=== PATIENT | female | born 1940 | race Caucasian/White ===

== ENCOUNTER 2020-05-03 17:15 | Inpatient (IN) | payer MEDICARE ==
[~2020-05-03] VITALS: Ht 160 cm; Wt 55.5 kg
[2020-05-03 19:43] LABS: IMMATURE GRANULOCYTES 1.4 % (0.0-5.0); MEAN CELL VOLUME 98.2 fL CALC (80.0-100.0); MEAN CORPUSCULAR HGB 29.5 pG CALC (26.0-32.0); MEAN CORPUSCULAR HGB CONC 30.1 g/dL CAL (32.0-36.0); NEUT# 21.76 thou/uL (2.00-7.15); RED BLOOD COUNT 1.66 mill/uL (4.20-5.60); RED CELL DISTRI WIDTH 17.4 % (11.5-15.5)
[2020-05-03 19:47] LABS: HEMATOCRIT 16.3 % (37.0-47.0); HEMOGLOBIN 4.9 g/dl (12.0-16.0)
[2020-05-03 19:54] LABS: ALBUMIN 3.7 g/dL (3.2-5.0); ALKALINE PHOSPHATASE 88 u/l (38-126); ANION GAP 14 (6-22 (CALC)); BILIRUBIN, TOTAL 0.3 mg/dL (0.0-1.4); BUN 51 mg/dL (8-23); BUN/CREATININE RATIO 78 (12-20 (CALC)); CARBON DIOXIDE 27 mmol/l (22-30); CHLORIDE 103 mmol/l (95-108); CREATININE 0.6 mg/dL (0.5-1.0); ETHYL ALCOHOL 0 mg/dl (0-30); GFR > 60 ML/MIN (>=60 (CALC)); GFR FOR AFR.AMER. > 60 ML/MIN (>=60 (CALC)); LIPASE 100 u/l (23-300); POTASSIUM 4.4 mmol/l (3.5-5.1); SGOT/AST 22 u/l (9-36); SODIUM 139 mmol/l (137-146); TOTAL PROTEIN 6.9 g/dL (6.3-8.2)
[2020-05-03 19:56] LABS: INTERNATIONAL NORMALIZED RATIO 0.9 RATIO (0.7-1.3); PROTHROMBIN TIME 9.4 SECONDS (9.0-12.5)
[2020-05-03 20:05] LABS: MYOGLOBIN 87 ng/mL (0 - 62)
[2020-05-03 22:00] VITALS: BP 126/59
[2020-05-03 23:15] VITALS: BP 147/48
[2020-05-04] VITALS (11 sets, daily range): BP systolic 105–148; BP diastolic 49–71
[2020-05-04 06:28] LABS: IMMATURE GRANULOCYTES 1.4 % (0.0-5.0); MEAN CORPUSCULAR HGB CONC 32.2 g/dL CAL (32.0-36.0); NEUT# 16.28 thou/uL (2.00-7.15); RED BLOOD COUNT 3.28 mill/uL (4.20-5.60)
[2020-05-04 06:31] LABS: HEMATOCRIT 29.5 % (37.0-47.0); HEMOGLOBIN 9.5 g/dl (12.0-16.0); MEAN CELL VOLUME 89.9 fL CALC (80.0-100.0)
[2020-05-04 06:44] LABS: ANION GAP 10 (6-22 (CALC)); BUN 38 mg/dL (8-23); BUN/CREATININE RATIO 68 (12-20 (CALC)); CARBON DIOXIDE 24 mmol/l (22-30); CHLORIDE 106 mmol/l (95-108); CREATININE 0.6 mg/dL (0.5-1.0); GFR > 60 ML/MIN (>=60 (CALC)); GFR FOR AFR.AMER. > 60 ML/MIN (>=60 (CALC)); POTASSIUM 4.2 mmol/l (3.5-5.1); SODIUM 137 mmol/l (137-146)
[2020-05-04 21:24] LABS: HEMATOCRIT 27.2 % (37.0-47.0); HEMOGLOBIN 8.9 g/dl (12.0-16.0)
[2020-05-05] VITALS (13 sets, daily range): BP systolic 101–143; BP diastolic 40–75
[2020-05-05 05:52] LABS: HEMATOCRIT 27.2 % (37.0-47.0); HEMOGLOBIN 8.6 g/dl (12.0-16.0); IMMATURE GRANULOCYTES 1.1 % (0.0-5.0); MEAN CELL VOLUME 89.8 fL CALC (80.0-100.0); MEAN CORPUSCULAR HGB 28.4 pG CALC (26.0-32.0); MEAN CORPUSCULAR HGB CONC 31.6 g/dL CAL (32.0-36.0); NEUT# 10.53 thou/uL (2.00-7.15); RED BLOOD COUNT 3.03 mill/uL (4.20-5.60); RED CELL DISTRI WIDTH 16.9 % (11.5-15.5)
[2020-05-05 06:10] LABS: ALKALINE PHOSPHATASE 72 u/l (38-126); ANION GAP 9 (6-22 (CALC)); BUN 19 mg/dL (8-23); BUN/CREATININE RATIO 36 (12-20 (CALC)); CARBON DIOXIDE 26 mmol/l (22-30); CHLORIDE 106 mmol/l (95-108); CREATININE 0.5 mg/dL (0.5-1.0); GFR > 60 ML/MIN (>=60 (CALC)); GFR FOR AFR.AMER. > 60 ML/MIN (>=60 (CALC)); SGOT/AST 23 u/l (9-36); SODIUM 137 mmol/l (137-146)
[2020-05-05 06:11] LABS: ALBUMIN 2.7 g/dL (3.2-5.0); BILIRUBIN, TOTAL 0.8 mg/dL (0.0-1.4); TOTAL PROTEIN 5.2 g/dL (6.3-8.2)
[2020-05-05 18:47] LABS: HEMATOCRIT 27.1 % (37.0-47.0); HEMOGLOBIN 8.6 g/dl (12.0-16.0)
[2020-05-06] VITALS: BP 129/65
[2020-05-06 04:00] VITALS: BP 123/58
[2020-05-06 05:18] LABS: HEMATOCRIT 26.9 % (37.0-47.0); HEMOGLOBIN 8.5 g/dl (12.0-16.0); IMMATURE GRANULOCYTES 1.1 % (0.0-5.0); MEAN CELL VOLUME 91.8 fL CALC (80.0-100.0); MEAN CORPUSCULAR HGB CONC 31.6 g/dL CAL (32.0-36.0); NEUT# 9.12 thou/uL (2.00-7.15); RED BLOOD COUNT 2.93 mill/uL (4.20-5.60); RED CELL DISTRI WIDTH 16.7 % (11.5-15.5)
[2020-05-06 05:35] LABS: ALBUMIN 2.7 g/dL (3.2-5.0); ALKALINE PHOSPHATASE 76 u/l (38-126); ANION GAP 9 (6-22 (CALC)); BILIRUBIN, TOTAL 0.7 mg/dL (0.0-1.4); BUN 11 mg/dL (8-23); BUN/CREATININE RATIO 22 (12-20 (CALC)); CARBON DIOXIDE 27 mmol/l (22-30); CHLORIDE 102 mmol/l (95-108); CREATININE 0.5 mg/dL (0.5-1.0); GFR > 60 ML/MIN (>=60 (CALC)); GFR FOR AFR.AMER. > 60 ML/MIN (>=60 (CALC)); SGOT/AST 21 u/l (9-36); SODIUM 135 mmol/l (137-146); TOTAL PROTEIN 5.3 g/dL (6.3-8.2)
[2020-05-06 07:10] VITALS: BP 128/68
[2020-05-06] MEDS ORDERED: OMEPRAZOLE20 MG PO (12:46)
== END 2020-05-06 15:12 | DRG 378 ==
LOC: ED 17:15 → ED-I 20:12 → ED 20:21 → MS2 20:22
PROVIDERS: Physician Assistant; ADMIT Internal Medicine; ATTEND Internal Medicine
PROC: 30233N1 Transfusion of Nonautologous Red Blood Cells into Peripheral Vein, Percutaneous Approach (ICD-10-PCS; 2020-05-03)
PROC: 30233N1 Transfusion of Nonautologous Red Blood Cells into Peripheral Vein, Percutaneous Approach (ICD-10-PCS; 2020-05-04)
PROC: 30233N1 Transfusion of Nonautologous Red Blood Cells into Peripheral Vein, Percutaneous Approach (ICD-10-PCS; 2020-05-04)
PROC: 0DB98ZX Excision of Duodenum, Via Natural or Artificial Opening Endoscopic, Diagnostic (ICD-10-PCS; principal; 2020-05-05)
DX: K92.2 Gastrointestinal hemorrhage, unspecified (principal); D62 Acute posthemorrhagic anemia; T39.315A Adverse effect of propionic acid derivatives, initial encounter; I25.10 Atherosclerotic heart disease of native coronary artery without angina pectoris; I10 Essential (primary) hypertension; E11.9 Type 2 diabetes mellitus without complications; F42.4 Excoriation (skin-picking) disorder; R53.1 Weakness; R52 Pain, unspecified; Z20.822 Contact with and (suspected) exposure to COVID-19; Z88.5 Allergy status to narcotic agent
CPT/HCPCS: P9016; S0164

== ENCOUNTER 2020-05-25 10:16 | Inpatient (IN) | payer MEDICARE, OTHER ==
[~2020-05-25] VITALS: Ht 160 cm; Wt 52.0 kg
[~2020-05-25 10:16] MED LIST: OMEPRAZOLE20 MG PO
--- NOTE | 2020-05-25 11:10 | NUR ---
PT ARRIVES VIA EMS FROM HOME WHERE HOME HEALTH NURSES FOUND HER SOILED WITH MELENOUS STOOL. SON ARRIVES TO BEDSIDE SOON THEREAFTER.
[2020-05-25 11:22] LABS: HEMATOCRIT 29.3 % (37.0-47.0); HEMOGLOBIN 8.6 g/dl (12.0-16.0); IMMATURE GRANULOCYTES 1.2 % (0.0-5.0); MEAN CELL VOLUME 96.1 fL CALC (80.0-100.0); MEAN CORPUSCULAR HGB 28.2 pG CALC (26.0-32.0); MEAN CORPUSCULAR HGB CONC 29.4 g/dL CAL (32.0-36.0); NEUT# 15.96 thou/uL (2.00-7.15); RED BLOOD COUNT 3.05 mill/uL (4.20-5.60); RED CELL DISTRI WIDTH 16.5 % (11.5-15.5)
[2020-05-25 11:33] LABS: ALKALINE PHOSPHATASE 92 u/l (38-126); CHLORIDE 99 mmol/l (95-108); CREATININE 1.4 mg/dL (0.5-1.0); GFR 36 ML/MIN (>=60 (CALC)); GFR FOR AFR.AMER. 44 ML/MIN (>=60 (CALC)); LIPASE 87 u/l (23-300); SGOT/AST 26 u/l (9-36); SODIUM 131 mmol/l (137-146)
[2020-05-25 11:42] LABS: ALBUMIN 3.9 g/dL (3.2-5.0); ANION GAP 23 (6-22 (CALC)); BILIRUBIN, TOTAL 0.3 mg/dL (0.0-1.4); BUN 75 mg/dL (8-23); BUN/CREATININE RATIO 54 (12-20 (CALC)); CARBON DIOXIDE 12 mmol/l (22-30); POTASSIUM 2.9 mmol/l (3.5-5.1)
--- NOTE | 2020-05-25 14:50 | NUR ---
SON HAS GONE HOME PT WILL BE ADMITTED. PT IS POOR HISTORIAN, UNRELIABLE IN WHAT SHE SAYS. NO DISTRESS SHE RESTS IN THE STRETCHER.
[2020-05-25 15:01] LABS: HEMATOCRIT 23.7 % (37.0-47.0); HEMOGLOBIN 7.5 g/dl (12.0-16.0)
--- NOTE | 2020-05-25 16:25 | NUR ---
PT ARRIVED TO UNIT AT 1625 VIA STRETCHER WITH ER STAFF; PULLED FROM STRETCHER TO BED WITH ONE PERSON ASSIST; MAX ASSIST. PT IS ALERT AND ORIENTED X 3 WITH FLAT AFFECT; ABLE TO ANSWER ALL ASSESSMENT QUESTIONS APPROPRIATELY, BUT APPEARS TO HAVE SOME FORGETFULNESS OR MILD CONFUSION AT TIMES. HARD OF HEARING. C/O 8/10 RIGHT SIDE PAIN THAT SHE HAS HAD X 1 MONTH; TAKES ES TYLENOL AT HOME AND DENIES TAKING ANY OTHER MEDICATIONS; EMPTY BOTTLE OF OMEPRAZOLE FOUND IN BELONGINGS. RESPIRATIONS EVEN AND UNLABORED ON ROOM AIR; SPO2 98%; DENIES SOB OR COUGH. LUNGS ARE DIMINISHED IN THE BASES. INCONTINENT OF BOWEL AND BLADDER; EXCORIATION TO BUTTOCK; PHOTO OBTAINED AND PLACED IN CHART AND BARRIER CREAM APPLIED. IV FLUIDS INFUSING UP ON ARRIVAL; IV SITE TO LAC APPEARS HEALTHY. ORIENTED TO ROOM AND CALL LIGHT SYSTEM. POC DISCUSSED. PT ENCOURAGED TO VERBALIZE CONCERNS. STATES UNDERSTANDING. SAFETY MEASURES IN PLACE. CALL LIGHT WITHIN REACH.
--- NOTE | 2020-05-25 16:34 | NUR ---
PT TAKEN TO ROOM 267, REPORT PROVIDED TO ALESSANDRA DOUGLAS.
[2020-05-25 16:48] VITALS: BP 126/36
--- NOTE | 2020-05-25 17:28 | NUR ---
PROTONIX GTT INITIATED AT THIS TIME. PT RESTING; NO NEEDS AT THIS TIME.
--- NOTE | 2020-05-25 18:50 | NUR ---
PT REQUESTING PAIN MEDICATION FOR RIGHT SIDED PAIN; NEW ORDERS RECEIVED.
--- NOTE | 2020-05-25 19:57 | NUR ---
ASSESSMENT COMPLETED AT THIS TIME. PT ASKING FOR TYLENOL, WILL OBTAIN ORDERS.
[2020-05-25 20:00] VITALS: BP 119/54
[2020-05-25 21:43] LABS: MEAN CORPUSCULAR HGB CONC 32.2 g/dL CAL (32.0-36.0); RED BLOOD COUNT 2.21 mill/uL (4.20-5.60); RED CELL DISTRI WIDTH 16.7 % (11.5-15.5)
[2020-05-25 21:45] LABS: HEMOGLOBIN 6.4 g/dl (12.0-16.0)
[2020-05-25 21:46] LABS: HEMATOCRIT 19.9 % (37.0-47.0)
--- NOTE | 2020-05-25 21:54 | NUR ---
LAB CALLED TO NOTIFY OF CRITICAL LABS, PHYSICIAN NOTIFIED AND ORDERS TO TRANSFUSE 2UN PRBC RECEIVED ALONG WITH LASIX TO BE ADMINISTERED BETWEEN UNITS AND CBC REPEAT IN AM. ORDERS PLACED,WILL OBTAIN CONSENT FROM PT. LAB CALLED TO ALERT TO ORDER FOR BLOOD.
[2020-05-25 21:57] LABS: ANION GAP 9 (6-22 (CALC)); CHLORIDE 105 mmol/l (95-108); CREATININE 0.9 mg/dL (0.5-1.0); GFR 60 ML/MIN (>=60 (CALC)); GFR FOR AFR.AMER. > 60 ML/MIN (>=60 (CALC)); SODIUM 130 mmol/l (137-146)
[2020-05-25 21:58] LABS: BUN 53 mg/dL (8-23); BUN/CREATININE RATIO 59 (12-20 (CALC))
[2020-05-25 22:01] LABS: CARBON DIOXIDE 19 mmol/l (22-30)
--- NOTE | 2020-05-25 23:00 | NUR ---
CALLED PHARMACY TO VERIFY RECEIPT OF NS ORDER OF 500MLS FOR ADMINISTRATION OF PRBC, CONFIRMED RECEIPT AND STATED THEY WOULD PROCESS ORDER. PER ROSALIND
--- NOTE | 2020-05-25 23:31 | NUR ---
IV ANTIBIOTIC THERAPY IS BEINGADMINISTERED AT THIS TIME THROUGH A NEW IV SITE/20 IN RFA. REFAXED ORDER FOR 500MLS OF NS TO PHARMACY FOR PROCESSING OF ORDERS FOR PRBC TRANSFUSION, HAVE NOT BEEN ABLE TO OBTAIN THIS ORDER BEING PROCESSED. HAVE CALLED TO CONFIRM RECEIPT AND SPOKEN TO CARDINAL ROSALIND.
--- NOTE | 2020-05-25 23:40 | NUR ---
IV ANTIBIOTIC THERAPY IS RUNNING AT THIS TIME.
[2020-05-26] VITALS (27 sets, daily range): BP systolic 84–173; BP diastolic 46–99
--- NOTE | 2020-05-26 00:28 | NUR ---
1ST UNIT OF PRBC STARTED AT THIS TIME RUNNING TO NEW IV SITE IN [facility]. I DISCUSSED SYMPTOMS OF REACTION WITH PT. SHE ASKED IF I WILL STAY WITH HER, I TOLD HER I WOULD STAY FOR THE FIRST 15 MIN AND CHECK HER OFTEN, SHE THANKED ME FOR STAYING. PT V/S ARE STABLE AT THIS TIME. WILL MONITOR FOR BLOOD PRODUCTE REACTION.
--- NOTE | 2020-05-26 00:57 | NUR ---
PT DENIES ANY ITCHING, SOB OR DISTRESSES AT THIS TIME.
--- NOTE | 2020-05-26 02:53 | NUR ---
FIRST UNIT OF PRBC COMPLETED AT THIS TIME AND NEW TUBING STARTED WITH NS @70. V/S ARE STABLE AT THIS TIME. BP 93/52.
--- NOTE | 2020-05-26 03:15 | NUR ---
2ND UNIT OF PRBC STARTED AT THIS TIME. PT REMINDED OF WHAT SIDE EFFECTS TO WATCH FOR, VERBALIZED UNDERSTANDING AND REPEATED WHAT SHE WAS GOING TO TELL ME ABOUT IF SHE EXPERIENCED ANY OF THOSE SYMPTOMS. I AM SITTING WITH PT FOR FIRST 15 MIN OF TRANSFUSION. PT IS AWAKE WATCHING TV. DENIES FEELING SLEEPY.
--- NOTE | 2020-05-26 03:32 | NUR ---
PT V/S ASSESSED, SHE IS AWAKE WATCHING TV. DENIES ANY NEG SYMPTOMS, DENIES SOB, ITCHING OR ANY OTHER DISTRESSES.
--- NOTE | 2020-05-26 04:27 | NUR ---
V/S ASSESSED, PT DENIES ANY S/O REACTION TO PRBC'S RUNNING TO RFA/SITE APPEARS HEALTHY. NO S/O DISTRESS. PT AWAKE AND WATCHING TV.
--- NOTE | 2020-05-26 05:52 | NUR ---
PT BP ELEVATED 132/46 AND SHE IS SOUNDING MILD WHEEZES IN LUNGS, MEDICATED AT THIS TIME W/LASIX ORDERS PRVOIDE.
[2020-05-26 06:20] LABS: IMMATURE GRANULOCYTES 0.5 % (0.0-5.0); MEAN CELL VOLUME 89.2 fL CALC (80.0-100.0); MEAN CORPUSCULAR HGB 28.3 pG CALC (26.0-32.0); MEAN CORPUSCULAR HGB CONC 31.7 g/dL CAL (32.0-36.0); NEUT# 8.59 thou/uL (2.00-7.15); RED BLOOD COUNT 3.25 mill/uL (4.20-5.60); RED CELL DISTRI WIDTH 15.6 % (11.5-15.5)
[2020-05-26 06:23] LABS: HEMOGLOBIN 9.2 g/dl (12.0-16.0)
--- NOTE | 2020-05-26 07:00 | NUR ---
PT REPORT RECEIVED FROM NIGHT NURSE, Eldon RIVERA
--- NOTE | 2020-05-26 10:00 | NUR ---
PT WAS FOUND RESTING COMFORTABLY IN BED; VITAL SIGNS ARE WITHIN NORMAL RANGE WITH THE EXCEPTION OF LOW B/P OF 84/57; HEART SOUNDS REGULAR;LUNG SOUNDS CLEAR, SLIGHTLY DIMINISHED IN UPPER LOBES, SOME WHEEZING IN LOWER LOBES BILATERALLY; PT O2 SAT 98 ON RA;RESPIRATIONS ARE EVEN AND UNLABORED; ABDOMEN IS SOFT AND BOWEL SOUNDS ARE ACTIVE IN ALL QUADRANTS; RADIAL AND PEDAL PULSES PRESENT WITH NO EDEMA NOTED IN LOWER EXTREMETIES;PT IS REPORTING SLIGHT PAIN ON RT SIDE;BUTTOCKS AND JORGE AREA ARE EXCORIATED; INCONTINENT OF URINE/BOWEL;PT HAS 2 IV SITES;#20 RAC AND #20 LFA WITH NS RUNNING @100ML/HR;SITES ARE BOTH PATENT AND FREE OF ANY COMPLICATIONS;PT ASKED TO CALL WITH ANY NEEDS;CALL LIGHT LEFT WITHIN REACH;BED IN LOWEST POSITION;WILL CONTINUE TO MONITOR.
--- NOTE | 2020-05-26 11:30 | NUR ---
PT CALLED AND ASKED TO BE CHANGED DUE TO INCONTINENCE OF URINE;FOUND PT WITH MODERATE SIZE BLOODY STOOL CLOT;PT REPORTED NO PAIN;PT CHANGED AND A PUREWICK WAS PLACED AT THIS TIME;BARRIER CREAM WAS PLACED ON BUTTOCKS TO HELP WITH PAIN AND EXCORIATION;PT WAS INSTRUCTED TO CALL WHEN SHE FELT THE NEED TO URINATE SO THE PUREWICK COULD BE CHECKED TO BE WORKING FOR HER;CALL LIGHT LEFT WITHIN REACH;BED IN LOWEST POSITION;WILL CONTINUE TO MONITOR.
--- NOTE | 2020-05-26 12:15 | NUR ---
PT WAS CHECKED TO MONITOR THE PUREWICK THAT WAS PLACED EARLIER;FOUND PT WITH LARGE AMOUNTS OF BLOODY STOOL;PT WAS CLEANED AND PUREWICK REMOVED;BARRIER CREAM PLACED ON BUTTOCKS;PROVIDER WAS NOTIFIED;PT WAS INSTRUCTED TO CALL IF NEEDING HELP;CALL LIGHT LEFT WITHIN REACH;BED IN LOWEST POSITION;WILL CONTINUE TO MONITOR.
[2020-05-26 13:11] LABS: HEMATOCRIT 24.7 % (37.0-47.0); HEMOGLOBIN 7.9 g/dl (12.0-16.0)
[2020-05-26 13:33] LABS: ALKALINE PHOSPHATASE 74 u/l (38-126); ANION GAP 9 (6-22 (CALC)); BUN 34 mg/dL (8-23); BUN/CREATININE RATIO 43 (12-20 (CALC)); CARBON DIOXIDE 20 mmol/l (22-30); CHLORIDE 107 mmol/l (95-108); CREATININE 0.8 mg/dL (0.5-1.0); GFR > 60 ML/MIN (>=60 (CALC)); GFR FOR AFR.AMER. > 60 ML/MIN (>=60 (CALC)); SGOT/AST 34 u/l (9-36); SODIUM 132 mmol/l (137-146)
--- NOTE | 2020-05-26 13:38 | NUR ---
CALL WAS MADE TO ; INFORMED HIM OF PT'S 2 EPISODES OF BLOODY CLOTS THAT SHE HAD PASSED(ONE MODERATE AND ONE LARGE); TOLD HIM THAT I HAD LET KNOW OF THE BLEEDING AND HE ASKED FOR A STAT H&H AND FOR THE ENDO TO BE DONE LATER TODAY IF HE WOULD AGREE; GAVE THE LAST TWO H&H RESULTS WELL THE RECOMMENDATION BY ;INFORMED THAT PT HAD BEEN NPO; SAID THAT HE WOULD TAKE CARE OF IT TODAY.
[2020-05-26 13:39] LABS: ALBUMIN 2.7 g/dL (3.2-5.0); BILIRUBIN, TOTAL 0.6 mg/dL (0.0-1.4); TOTAL PROTEIN 5.2 g/dL (6.3-8.2)
--- NOTE | 2020-05-26 14:25 | NUR ---
PT WAS BEING PREPARED FOR TRANSPORT TO OR;PT HAD ANOTHER VERY LARGE BLOODY STOOL;CLEANED PT AND CONSENT WAS OBTAINED AND SIGNED BY PT;PRE-OP PAPERWORK CHECKLIST WAS COMPLETED.
--- NOTE | 2020-05-26 14:50 | NUR ---
PT TRANSPORTED VIA STRETCHER TO OR BY Eldon SHAH
--- NOTE | 2020-05-26 19:04 | NUR ---
PT ARRIVED VIA BED ACCOMPANIED BY OR STAFF ON A VENT. PT STABILIZED IN ROOM. RT AT BEDSIDE.
--- NOTE | 2020-05-26 19:22 | NUR ---
report received from Tory Cuenca RN; monitoring attachments connected; pt noted bigeminy; hutchins to gravity;
[2020-05-26 20:21] LABS: HEMATOCRIT 32.4 % (37.0-47.0); HEMOGLOBIN 10.3 g/dl (12.0-16.0)
--- NOTE | 2020-05-26 20:30 | NUR ---
report given to Cristofer Meza RN
--- NOTE | 2020-05-26 21:00 | NUR ---
PT REMAINS ORALLY INTUBATED ON VENTILATOR. AROUSES BRIEFLY TO VOICE. NICHOLS TO BSD WITH CLEAR YELLOW URINE DRAINING. ABD DRESSING DRY AND INTACT WITH [address] WITH BLOODY DRAINAGE NOTED. LEFT NARE SALEM SUMP TO MED INTERMITTENT SUCTION WITH COFFEE GROUND EMESIS NOTED. IV SITES RFA AND LFA PATENT AND INFUSING WELL. LUIS DANIEL HUGGER IN USE.
[2020-05-27] VITALS (25 sets, daily range): BP systolic 115–176; BP diastolic 44–77
--- NOTE | 2020-05-27 01:00 | NUR ---
AROUSES TO VOICE. TOLERATING VENT. NO SIGNIFICANT CHANGE IN EXAM.
--- NOTE | 2020-05-27 02:08 | NUR ---
RESTING COMFORTABLY. IV INFUSING WELL. AROUSES TO VOICE. ORIENTED TO CURRENT CONDITION, SITUATION AND PLANS. NODS UNDERSTANDING. NICHOLS DRAINING WELL. NG DRAINAGE WITH DARK GREEN TINT. REGINALDO DRAINS CONTINUE TO DRAIN BLOODY FLUID.
--- NOTE | 2020-05-27 02:27 | NUR ---
CLEANED OF 150-200 CC BURGANDY COLORED STOOL.
--- NOTE | 2020-05-27 02:58 | NUR ---
ON PROPOFOL DRIP. APPEARS COMFORTABLE.
--- NOTE | 2020-05-27 03:21 | NUR ---
INCREASED PROPOFOL DRIP TO 10 MCG. MEDICATED FOR ABD PAIN.
--- NOTE | 2020-05-27 05:34 | NUR ---
DECREASED FIO2 TO 28% AFTER ABG RESULTS. AWAKE AND RELATIVELY COMFORTABLE.
[2020-05-27 06:05] LABS: URINE BILIRUBIN - DIPSTICK NEGATIVE (NEGATIVE); URINE BLOOD DIPSTICK TRACE-INTACT (NEGATIVE); URINE COLOR YELLOW; URINE GLUCOSE - DIPSTICK NEGATIVE (NEGATIVE); URINE KETONE NEGATIVE (NEGATIVE); URINE LEUK ESTERASE NEGATIVE (NEGATIVE); URINE NITRITE - DIPSTICK NEGATIVE (Negative); URINE PH 5.5 (4.5-8.0); URINE PROTEIN - DIPSTICK TRACE mg/dL (NEG-TRACE); URINE SPECIFIC GRAVITY 1.025; URINE UROBILINOGEN - DIPSTICK 0.2 E.U./dL (0.2)
--- NOTE | 2020-05-27 06:29 | NUR ---
ALERT AWAKE. INTERACTIVE AND APPROPRIATE. ASSISTS IN TURNING. VSS. TOLERATING VENT CHANGE. IV'S INFUSING WELL. SITES GOOD. NICHOLS AND NG ARE DRAINING WELL.
[2020-05-27 06:54] LABS: MEAN CELL VOLUME 86.9 fL CALC (80.0-100.0); MEAN CORPUSCULAR HGB 28.5 pG CALC (26.0-32.0); MEAN CORPUSCULAR HGB CONC 32.7 g/dL CAL (32.0-36.0); NEUT# 14.34 thou/uL (2.00-7.15); RED BLOOD COUNT 2.6 mill/uL (4.20-5.60); RED CELL DISTRI WIDTH 17.6 % (11.5-15.5)
[2020-05-27 06:57] LABS: HEMATOCRIT 22.6 % (37.0-47.0); HEMOGLOBIN 7.4 g/dl (12.0-16.0)
[2020-05-27 07:12] LABS: ANION GAP 7 (6-22 (CALC)); BUN 30 mg/dL (8-23); BUN/CREATININE RATIO 34 (12-20 (CALC)); CARBON DIOXIDE 23 mmol/l (22-30); CHLORIDE 112 mmol/l (95-108); CREATININE 0.9 mg/dL (0.5-1.0); GFR 60 ML/MIN (>=60 (CALC)); GFR FOR AFR.AMER. > 60 ML/MIN (>=60 (CALC)); POTASSIUM 3.2 mmol/l (3.5-5.1); SODIUM 138 mmol/l (137-146)
--- NOTE | 2020-05-27 07:15 | NUR ---
REPORT RECEIVED FROM STELLA VELÁZQUEZ. PT RESTING IN BED SEMI FOWLERS AND POSITIONED ONTO RIGHT SIDE WITH PILLOWS. SEDATED AND INTUBATED; VENT SETTINGS ON ASSIST CONTROL RATE OF 20; TV 450 FIO2 28% PEEP 5. RASS SCORE OF 3; PT IS AWAKE AND FOLLOWING COMMANDS; BILATERAL WRISTS RESTRAINTS INTACT. PROPOFOL INFUSING AT 10 MCG/MIN AND NS KVO. ABDOMINAL DRESSING CDI; 2 REGINALDO DRIANS DRAINING SEROSANGUINOUS FLUID IN MODERATE AMOUNTS. NG TUBE L NARE CONNNECTED TO LIS WITH BLACK/DARK RED COFFEE GROUND CONTENT. NICHOLS DRAINING CLEAR YELLOW URINE. SCDS INTACT TO BLE. SAFETY MEASURES IN PLACE. NEEDS ARE ANTICIPATED BY STAFF.
--- NOTE | 2020-05-27 07:30 | NUR ---
PROPOFOL TITRATED DOWN TO 5 MCG/MIN IN PREPARATION FOR EXTUBATION. OK PER DR. ARORA.
--- NOTE | 2020-05-27 07:55 | NUR ---
PT INDICATING PAIN TO ABDOMEN; DIALUDID ADMINISTERED. PROPOFOL DISCONTINUED.
--- NOTE | 2020-05-27 07:56 | NUR ---
RT AT BEDSIDE FOR EXTUBATION.
--- NOTE | 2020-05-27 08:03 | NUR ---
PT EXTUBATED AND PLACED ON 2L NC @ 0755.
--- NOTE | 2020-05-27 08:05 | NUR ---
RESTRAINTS REMOVED IMMEDIATELY AFTER EXTUBATION.
--- NOTE | 2020-05-27 08:20 | NUR ---
PT USING CALL LIGHT FREQUENTLY REPORTING SEVERE ABDOMINAL PAIN AND REQUESTING MEDICATION; NEW ORDER FOR OFIRMEV; INFUSING AT THIS TIME.
--- NOTE | 2020-05-27 08:26 | NUR ---
DR. ARORA AND ROBIN HYLTON AT BEDSIDE.
--- NOTE | 2020-05-27 09:00 | NUR ---
INCONTINENT OF LARGE LOOSE BLACK STOOL WITH CLOTS. 22ML OF DARK RED, YELLOW TINGED FLUID EMPTIED FROM REGINALDO #1 ON R ABDOMEN; 8ML OF SANGUINOUS DRAINAGE EMPTIED FROM REGINALDO #2 ON L ABDOMEN. OCCASIONAL LOOSE COUGH WITH BLOODY THICK SPUTUM; SUCTION AT BEDSIDE AND PT ABLE TO SUCTION SPUTUM FROM MOUTH. DR. JUSTIN AT BEDSIDE FOR EVAL. PT TO REMAIN NPO.
--- NOTE | 2020-05-27 09:15 | NUR ---
RADIOLOGY AT BEDSIDE FOR PORTABLE CHEST XR.
--- NOTE | 2020-05-27 11:52 | NUR ---
NG TUBE FOUND DISLODGED ON BED; PT STATES THAT SHE REMOVED IT. NEW NG TUBE PLACED RIGHT NARE; PLACEMENT VERIFIED WITH AUSCULTATION OF AIR ADMINISTRATION. IV SITE TO LFA REMOVED DUE TO REDNESS AND POSSIBLE INFILTRATION. #20 TO RFA REMAINS PATENT. ANESTHESIA AT BEDSIDE FOR POST OP EVAL.
--- NOTE | 2020-05-27 12:19 | NUR ---
BLOOD DRAWN BY ICU STAFF AND SENT TO LAB. SOL INFUSING.
[2020-05-27 12:23] LABS: HEMATOCRIT 21.5 % (37.0-47.0); HEMOGLOBIN 7.1 g/dl (12.0-16.0)
--- NOTE | 2020-05-27 13:27 | NUR ---
DR. ARORA NOTIFIED OF HEMOGLOBIN OF 7.1, TRENDING DOWN SINCE LAST NIGHT. NEW ORDER FOR 1 UNIT OF PRBCS. IV SITE TO RFA DISLODGED; SITE DC'D AND NEW #20 STARTED TO RIGHT HAND; NORMAL SALINE AGAIN INFUSING AT 100 ML/HR PER ORDER.
--- NOTE | 2020-05-27 14:19 | NUR ---
BLOOD TRANSFUSION INITATED; IV SITE APPEARS HEALTHY; VSS. PT REMINDED OF S/S TRANSFUSION REACTION. CONTINUES TO C/O SEVERE ABDOMINAL PAIN. PILLOW PROVIDED FOR SPLINGING AND PT ENCOURAGED TO REPOSITION.
--- NOTE | 2020-05-27 16:38 | NUR ---
MULTIPLE ATTEMPTS MADE FOR SECOND IV SITE WITHOUT SUCCESS. BLOOD TRANSFUSION CONTINUES TO SITE IN RIGHT HAND; NO S/S REACTION. PT REMAINS ON 2L VIA NC.
--- NOTE | 2020-05-27 17:23 | NUR ---
BLOOD TRANSFUSION COMPLETED; IV TYLENOL ADMINSITERED IMMEDIATELY FOLLOWING. DIFLUCAN NOW INFUSING IVPB TO NORMAL SALINE. 225ML OF COFFEE GROUND DARK RED CONTENT EMPTIED FROM NG TUBE; CONTINUES ON LOW CONTINUOUS SUCTION PER ORDERS. REGINALDO#1 EMPTIED 30ML OF DARK GREEN/BLACK FLUID; REGINALDO#2 EMPTIED 10ML OF SANGUINOUS FLUID; DR. JUSTIN UPDATED ON CHARACTERISTICS OF OUTPUT.
--- NOTE | 2020-05-27 18:07 | NUR ---
DILAUDID GIVEN NOW; PT MORE RELAXED AND RESTING WITH EYES CLOSED. ZOSYN INFUSING. SAFETY MEASURES IN PLACE. CALL LIGHT WITHIN REACH.
[2020-05-27 20:00] LABS: HEMATOCRIT 24.7 % (37.0-47.0); HEMOGLOBIN 8.3 g/dl (12.0-16.0)
--- NOTE | 2020-05-27 20:10 | NUR ---
PT IN SUPINE POSITION; PT A/O X3; O2 2L VIA NC, O2 SAT 95%; NG TO LT NARE WITH SMALL AMOUNT OF DARK DRAINAGE NOTED; DRSG TO ABD CDI; REGINALDO DRAIN #1 WITH BILE COLOR DRAINAGE; REGINALDO DRAIN #2 WITHE SMALL AMOUNT OF SEROUSAGINOUS DRAINAGE NOTED; NICHOLS DRAINING YELLOW URINE TO BEDSIDE DRAIN; PT WITH MODERATE AMOUNT OF DK PASTY STOOL, JORGE CARE PROVIDED; STOOL SAMPLE OBTAINED; BUTTOCKS SANCHEZ BARRIER CREAM APPLIED; BILAT SCD IN PLACE; PT REPOSITION TO RT SIDE; CALL CALDWELL WITHIN REACH; WILL CONTINUE TO MONITOR.
[2020-05-27 21:06] LABS: C. DIFFICILE TOXIN A&B NEGATIVE (NEGATIVE)
--- NOTE | 2020-05-27 22:41 | NUR ---
PT REPOSITIONS SELF IN BED; PT PULLED NGT OUT; MD NOTIFIED; ORDERS RECEIVED TO LEAVE OUT; CALL CALDWELL WITHIN REACH; WILL CONTINUE TO MONITOR.
[2020-05-28] VITALS (17 sets, daily range): BP systolic 115–141; BP diastolic 40–67
--- NOTE | 2020-05-28 00:45 | NUR ---
PT UP COMPLAIN OF ABD SURGICAL PAIN 12/11, MEDICATED ORDERED; NO OTHER COMPLAINTS VOICED; CALL CALDWELL WITHIN REACH; WILL CONTINUE TO MONITOR.
--- NOTE | 2020-05-28 02:14 | NUR ---
pt resting with eyes closed; no s/sx of distress noted; call lan within reach; will continue to monitor.
--- NOTE | 2020-05-28 04:49 | NUR ---
PT FOUND WITH IV ACCESS OUT, PARTIAL BATH COMPLETED AND GOWN AND LINEN CHANGE WELL. PT INCONTINENT OF MODERATE AMOUNT BLACK LOOSE STOOL, JORGE CARE PROVIDED BREAKDONW NOTED TO SACRAL AREA AND BUTTOCKS, PT ENCOUARGED STRONGLY TO REPOSITION ON SIDE FOR PRESSURE RELIEF AND WILL HAVE PRIMARY CARE DISCUSS SPECIALITY BED WITH MD IN AM. PT TOLERATED WELL, NEW IV ACCESS OBTAINED, MEDICATED FOR PAINA ND REPOSITIONED ON R SIDE.
[2020-05-28 05:33] LABS: HEMATOCRIT 24.3 % (37.0-47.0); IMMATURE GRANULOCYTES 0.8 % (0.0-5.0); MEAN CELL VOLUME 87.4 fL CALC (80.0-100.0); MEAN CORPUSCULAR HGB 28.8 pG CALC (26.0-32.0); MEAN CORPUSCULAR HGB CONC 32.9 g/dL CAL (32.0-36.0); NEUT# 10.02 thou/uL (2.00-7.15); RED BLOOD COUNT 2.78 mill/uL (4.20-5.60); RED CELL DISTRI WIDTH 17.3 % (11.5-15.5)
[2020-05-28 06:03] LABS: ALBUMIN 2.3 g/dL (3.2-5.0); ALKALINE PHOSPHATASE 62 u/l (38-126); BILIRUBIN, TOTAL 0.8 mg/dL (0.0-1.4); BUN 15 mg/dL (8-23); BUN/CREATININE RATIO 22 (12-20 (CALC)); CHLORIDE 107 mmol/l (95-108); CREATININE 0.7 mg/dL (0.5-1.0); GFR > 60 ML/MIN (>=60 (CALC)); GFR FOR AFR.AMER. > 60 ML/MIN (>=60 (CALC)); MAGNESIUM 1.8 mg/dL (1.6-2.3); SGOT/AST 33 u/l (9-36); SODIUM 138 mmol/l (137-146); TOTAL PROTEIN 4.5 g/dL (6.3-8.2)
[2020-05-28 06:06] LABS: ANION GAP 5 (6-22 (CALC)); CARBON DIOXIDE 29 mmol/l (22-30); POTASSIUM 2.5 mmol/l (3.5-5.1)
--- NOTE | 2020-05-28 06:15 | NUR ---
PT MEDICATED ORDERED, PT FOUND WITH COBAN OFF IV ACCESS, REMINDED TO KEEP IV INTACT AND LEAVE SITE ALONE, PT VERBALIZES UNDERSTANDIG BUT MAY REQUIRE REMINDERS.MINIMAL SLEEP ACHIEVED BY PT THIS SHIFT, DOES MAKE FREQUENT REQUESTS TO "NAP" COMFORT MEASURES PROVIDED.
--- NOTE | 2020-05-28 07:05 | NUR ---
RADIOLOGY AT BEDSIDE FOR CHEST XR.
--- NOTE | 2020-05-28 07:13 | NUR ---
DR. GIBBS AT BEDSIDE.
--- NOTE | 2020-05-28 07:20 | NUR ---
REPORT RECEIVED FROM STELLA WOLFE. PT RESTING IN BED SEMI FOWLERS ; ALERT AND ORIENTED WITH FORGETFULNESS. C/O SEVERE ABDOMINAL PAIN. RESPIRATIONS EVEN AND UNLABORED ON 2L OXYGEN VIA NC. ABDOMINAL DRESSING CDI WITH 2 REGINALDO DRAINS. IV FLUIDS INFUSING WITHOUT DIFFICULTY; IV SITE APPEARS HEALTHY. SCDS INTACT TO BLE. SAFETY MEASURES IN PLACE. CALL LIGHT WITHIN REACH.
--- NOTE | 2020-05-28 09:22 | NUR ---
DR. JORGENSEN NOTIFIED OF REMOVAL OF NG TUBE; WILL NOT REINSERT AT THIS TIME.
--- NOTE | 2020-05-28 10:35 | NUR ---
SECOND IV SITE STARTED TO RIGHT HAND; POTASSIUM AND MAGNESIUM INFUSING AT THIS TIME. PT RECEIVED IV OFIRMEV FOR ABDOMINAL PAIN.
--- NOTE | 2020-05-28 12:28 | NUR ---
PT RESTING IN BED WITH EYES CLOSED; AWAKENS SPONTANESOUSLY. SECOND BAG OF POTASSIUM INFUSING AND ZOSYN INFUSED. BOTH IV SITES APPEAR HEALTHY AND FLUSHES.
--- NOTE | 2020-05-28 13:39 | NUR ---
[facility]
--- NOTE | 2020-05-28 14:00 | NUR ---
DR. JUSTIN AT BEDSIDE FOR EVAL.
--- NOTE | 2020-05-28 16:00 | NUR ---
PT USING MOIST TOOTHETTES TO MOISTEN MOUTH AND LIPS. IV FLUIDS CONTINUE TO INFUSE WITHOUT DIFFICULTY AND IV SITES APPEAR HEALTHY. PT C/O CONSTANT ABDOMINAL PAIN, BUT THAT SHE FEELS A LITTLE BIT BETTER AND IT IS NOW A 11/10. SAFETY MEASURES IN PLACE. CALL LIGHT WITHIN REACH.
--- NOTE | 2020-05-28 18:09 | NUR ---
ZOSYN INFUSING. REGINALDO DRAINS BOTH NOW DRAINING SEROSANGUINOUS DRAINAGE. NICHOLS DRAINING CLEAR YELLOW URINE.
--- NOTE | 2020-05-28 20:00 | NUR ---
RESTING IN BED ON ROUNDS. AWAKE, ALERT AND ORIENTED. RESP NON-LABORED. LUNGS CLEAR. O2 ON AT 2 L NC. O2 SAT 100% ABD DSG CDI. REGINALDO #1 TO RT ABD AND REGINALDO #2 TO LT ABD BOTH WITH SEROSANGUINOUS DRAINAGE. NICHOLS DRAINS CLEAR YELLOW URINE. SCD'S IN PLACE BILATERALLY. ADJUSTMENT SUPERVISOR SHOWS SR. DISCUSSED PLAN OF CARE. DENIES NEEDS AT THIS TIME. CALL CALDWELL IN REACH.
--- NOTE | 2020-05-28 22:00 | NUR ---
RESTING WITHOUT COMPLAINTS. VSS. RESP NON-LABORED. SR ON MONITOR.
[2020-05-29] VITALS (14 sets, daily range): BP systolic 116–171; BP diastolic 46–75
--- NOTE | 2020-05-29 00:05 | NUR ---
RESTING IN BED WITH EYES CLOSED. RESP NON-LABORED. VSS. SR ON MONITOR.
--- NOTE | 2020-05-29 02:05 | NUR ---
COMPLETE BED BATH AND LINEN CHANGE. PATIENT INCONTINENT OF LARGE AMOUNT OF LIGHT BROWN LIQUID. BARRIER OINT APPLIED TO BUTTOCKS. AIR MATTRESS IN PLACE. HEEL PROTECTORS APPLIED BILATERALLY. TURNED AND REPOSITIONED. PATIENT C/O OPERATIVE PAIN.
--- NOTE | 2020-05-29 02:15 | NUR ---
MEDICATED WITH DIALUDID 1 MG IVP FOR C/O PAIN.
--- NOTE | 2020-05-29 02:40 | NUR ---
PATIENT STATES PAIN MED HAS HELPED.
--- NOTE | 2020-05-29 04:00 | NUR ---
RESTING WITH EYES CLSOED. IN NO APPARENT DISTRESS. VSS. RESP NON-LABORED. SR ON MONITOR.
--- NOTE | 2020-05-29 05:55 | NUR ---
DILAUDID 1 MG IVP GIVEN FOR C/O OPERATIVE PAIN. TURNED AND REPOSITIONED ONTO RIGHT SIDE. PATIENT ASSISTS WITH TURNING ABLE. VSS. NS CONTINUES TO INFUSE INTO LW IV SITE AT 100 ML/HR. SALINE LOCK IN RH FLUSHED AND PATENT.
[2020-05-29 06:52] LABS: HEMOGLOBIN 8.1 g/dl (12.0-16.0); MEAN CELL VOLUME 91.9 fL CALC (80.0-100.0); MEAN CORPUSCULAR HGB 28.6 pG CALC (26.0-32.0); MEAN CORPUSCULAR HGB CONC 31.2 g/dL CAL (32.0-36.0); RED BLOOD COUNT 2.83 mill/uL (4.20-5.60); RED CELL DISTRI WIDTH 17.9 % (11.5-15.5)
--- NOTE | 2020-05-29 06:55 | NUR ---
Patient is screened for PT intervention and would benefit fron consult if medical agrees
[2020-05-29 07:10] LABS: ALBUMIN 2.7 g/dL (3.2-5.0); ALKALINE PHOSPHATASE 74 u/l (38-126); ANION GAP 13 (6-22 (CALC)); BILIRUBIN, TOTAL 0.8 mg/dL (0.0-1.4); BUN 7 mg/dL (8-23); BUN/CREATININE RATIO 13 (12-20 (CALC)); CHLORIDE 104 mmol/l (95-108); CREATININE 0.5 mg/dL (0.5-1.0); GFR > 60 ML/MIN (>=60 (CALC)); GFR FOR AFR.AMER. > 60 ML/MIN (>=60 (CALC)); MAGNESIUM 1.7 mg/dL (1.6-2.3); POTASSIUM 2.8 mmol/l (3.5-5.1); SGOT/AST 33 u/l (9-36); SODIUM 136 mmol/l (137-146); TOTAL PROTEIN 5.2 g/dL (6.3-8.2)
[2020-05-29 07:18] LABS: CARBON DIOXIDE 22 mmol/l (22-30)
--- NOTE | 2020-05-29 07:20 | NUR ---
PT IS RESTING IN BED ALERT TO SELF AND SURROUNDINGS BUT STM SEEMS VERY POOR. REQUIRES FREQUENT REMINDERS OF WHAT IS HAPPENING (EVEN WHEN YOU HAVE JUST TOLD HER), WHEN SHE WAS LAST MEDICATED, ETC....O2 IS AT 2L VIA NC AND O2 SATS 97-100%. LUNGS CLEAR/DIMINSHED WITH NO SOB OR DISTRESS NOTED, ABD SOFT BS HYPOACTIVE WITH RUQ ACTIVE, REGINALDO'S X2 WITH SEROUS DRNG, REGINALDO'S STRIPPED W/O INCIDENT, DRESSING TO ABD CLEAN DRY AND INTACT WITH NO DRNG NOTED. SCD'S ON BLE WITH HEEL PROTECTORS IN PLACE, PT ALSO ON SPECIALTY MATTRESS, GLUTEAL CHEEKS AND SACRAL AREA WITH SOME DENUSION NOTED, NICHOLS CATH INTACT DRAINGIN CLEAR YELLOW URINE WITH SOME SEDIMENT NOTED. CATH SECURITY DEVICE INTACT, PT HAS BILATERAL WRIST 22G IV ACCESS WITH IVF INFUSING INTO LEFT SIDE AND R SIDE HEP LOCKED, TELE READING SR RATE INTHE 70-80'S WITH B/P STABLE AND PT AFEBRILE, COMFORT MEASURES PROVIDED, WILL REPOSTION Q2H TO IMPROVED PRESSURE RELIEF, CALL CALDWELL WITHIN REACH.
--- NOTE | 2020-05-29 08:20 | NUR ---
OOB TO RECLINER AT BEDSIDE WITH DAMAGE PREVENTION COORDINATOR ASSIST, TOLERATED WELL, PT CONTINUES TO TELL ANYONE WHO WALKS INTO ROOM THAT SHE IS IN PAIN REGARDLESS OF WHEN SHE HAS BEEN MEDICATED LAST, REQUIRES FREQUENT REMINDERS ABOUT EVERYTHING STM SEEMS POOR REMINDED ABOUT LAST TIME MEDICATED, ABOUT PLAN WHILE IN ROOM AND TO NOT PULL AT EQUIPMENT (ESPECIALLY IV ACCESSES) VERBALIZES UNDERSTANDING WILL CONTINUE TO REINFORCE.
--- NOTE | 2020-05-29 10:00 | NUR ---
PT STTOD AND TOOK FEW STEPS TO WHEELCHAIR FOR TRASNPORT TO RADIOLGY FOR UPPER GI SERIES, PT DID WELL WITH AMBULATION AND TOLERATED W/O INCIDENT, O2 REMAINS AT 2L VIA NC WIRE BOUND BOX MACHINE OPERATOR TAKING PT TO RADILOGY AT THIS TIME
--- NOTE | 2020-05-29 11:14 | NUR ---
SPKE WITH SON AT LENGTH REAGRDING PT AND PLAN OF CARE PER SON HE IS REQUESTING PLACEMENT AT THIS TIME.
--- NOTE | 2020-05-29 11:46 | NUR ---
PT BACK FROM RADIOLOGY AND ASSISTED WITH BATH THEN INTO BED. WILL COTNINUE TO MONITOR.
--- NOTE | 2020-05-29 11:56 | NUR ---
PT RESTING IN BED, HAD BATH AFTER RETURN FROM RADIOLOGY REMINDED ABOUT PAIN MEDICATION SCHEDULE AND THAT PENDING RADIOLOGY RESULTS SHE WILL BE STARTED ON CLEAR LIQUIDS.
--- NOTE | 2020-05-29 13:49 | NUR ---
PT RESTING WITH EYES CLOSED, IVF INFUSING ORDERED, PT REQUESTS FLUIDS REINFORCED NPO STATUS CALL CALDWELL WITHIN REACH.
--- NOTE | 2020-05-29 15:00 | NUR ---
PT RESTING REPEATED REMINDERS REGARDING NPO, MOUTH SWABS PROVIDED PT REPEATEDLY REQUIRES REMINDERS FOR EVERTHING, PROVIDED PRN. SON UPDATED EARLIER, PT AWARE, CALL CALDWELL WITHIN REACH
--- NOTE | 2020-05-29 16:05 | NUR ---
PT MEDICATED FOR PAIN ORDERED, COMFORT MEASURES PROVIDED, WILL CONTINUE TO MONITOR.
--- NOTE | 2020-05-29 17:54 | NUR ---
PT RESTING IVF CONTINUE TOLERATED 2 K RIDERS TODAY WITHOUT INCIDENT, MOUTH SWABS PROVIDED, CALL CALDWELL WITHIN REACH.
--- NOTE | 2020-05-29 19:30 | NUR ---
RESTING IN BED WITH EYES CLOSED. AROUSES TO NAME. ALERT AND ORINTED X3. RESP EVEN AND UNLABORED. LUNGS CLEAR. ABD DSG CDI. REGINALDO DRAINS INTACT X2, BOTH DRAINING SEROSANGUINOUS FLUID. BILATERAL SCDS ON. IV IN LW, NS INFUSING AT 100 ML/HR. NICHOLS DRAINING CLEAR YELLOW URINE. WORLD RENOWNED CHEF AND RESTAURANT OWNER SHOWS SR. DISCUSSED PLAN OF CARE. DENIES NEEDS AT THIS TIME. CALL CALDWELL IN REACH.
--- NOTE | 2020-05-29 19:55 | NUR ---
POWDER OPERATOR HERE FOR PORTABLE KUB.
--- NOTE | 2020-05-29 20:45 | NUR ---
MEDICATED WITH DILAUDID ORDERED FOR C/O ABD PAIN.
--- NOTE | 2020-05-29 21:15 | NUR ---
STATES PAIN IS SUBSIDING. RESTING CALMLY.
--- NOTE | 2020-05-29 22:00 | NUR ---
RESTING WITH EYES CLSOED. RESP NON-LABORED. VSS.
[2020-05-30] VITALS (9 sets, daily range): BP systolic 106–159; BP diastolic 39–68
--- NOTE | 2020-05-30 | NUR ---
ASLEEP. RESP EVEN AND UNLABORED. VSS. SR ON MONITOR. NS INFUSING WITHOUT INCIDENT. MONITOR SR. REMAINS ON AIR MATTRESS.
--- NOTE | 2020-05-30 01:40 | NUR ---
MEDICATED WITH DILAUDID ORDERED FOR C/O ABD/OPERATVIE PAIN.
--- NOTE | 2020-05-30 04:00 | NUR ---
RESTING WITH EYES CLSOED. RESP NON-LABORED. VSS. SR ON MONITOR.
[2020-05-30 06:18] LABS: HEMATOCRIT 26.8 % (37.0-47.0); HEMOGLOBIN 8.5 g/dl (12.0-16.0); MEAN CELL VOLUME 90.2 fL CALC (80.0-100.0); MEAN CORPUSCULAR HGB 28.6 pG CALC (26.0-32.0); MEAN CORPUSCULAR HGB CONC 31.7 g/dL CAL (32.0-36.0); RED BLOOD COUNT 2.97 mill/uL (4.20-5.60); RED CELL DISTRI WIDTH 17.5 % (11.5-15.5)
--- NOTE | 2020-05-30 06:30 | NUR ---
INCONTINENT OF HUGE AMOUNT OF LIQUID DARK GREENISH/BLACK STOOL. COMPLETE BED BATH AND LINEN CHANGE DONE. JORGE-CARE/NICHOLS CARE WITH PERIWASH. BARRIER OINT APPLIED LIBERALLY TO JORGE-AREA AND BUTTOCKS. REPOSITIONED IN BED. PATIENT ASSISTS WITH TURNING ABLE. ON AIR MATTRESS FOR SKIN ISSUES.
[2020-05-30 06:48] LABS: ALBUMIN 2.5 g/dL (3.2-5.0); ALKALINE PHOSPHATASE 85 u/l (38-126); ANION GAP 14 (6-22 (CALC)); BILIRUBIN, TOTAL 0.7 mg/dL (0.0-1.4); BUN 4 mg/dL (8-23); BUN/CREATININE RATIO 8 (12-20 (CALC)); CARBON DIOXIDE 22 mmol/l (22-30); CHLORIDE 105 mmol/l (95-108); CREATININE 0.5 mg/dL (0.5-1.0); GFR > 60 ML/MIN (>=60 (CALC)); GFR FOR AFR.AMER. > 60 ML/MIN (>=60 (CALC)); MAGNESIUM 1.4 mg/dL (1.6-2.3); POTASSIUM 2.7 mmol/l (3.5-5.1); SGOT/AST 28 u/l (9-36); SODIUM 138 mmol/l (137-146); TOTAL PROTEIN 4.9 g/dL (6.3-8.2)
--- NOTE | 2020-05-30 07:35 | NUR ---
PATIENT AWAKENS EASILY WHEN SPOKEN TO. ON RA, O2 SAT GREATER THAN 95%, NO SOB NOTED, NO COMPLAINTS. NURSE ASSESSMENT PERFORMED. SCD'S PLACED. NICHOLS INTACT, URINE CLEAR/YELLOW. L-WRIST IV INTACT, NS AT 100 ML/HR. AIR MATRESS INTACT. SR ON TELEMETRY. REGINALDO DRAINS X2 INTACT, DRAIN RED BLOOD, ACTIVE BS, ABDOMEN SOFT, DISTENDED. CALL LIGHT WITHIN REACH.
--- NOTE | 2020-05-30 09:44 | NUR ---
PAIN MEDICATION GIVEN FOR C/O ABDOMINAL PAIN, RATES 8/10. ALSO SAT HER IN HIGH RICH'S SO SHE COULD TRY AN APPLE JUICE PER REQUEST, SHE WAS ABLE TO SWALLOW WITHOUT DIFFICULTY. NO C/O OF NAUSEA.
--- NOTE | 2020-05-30 10:50 | NUR ---
PAIN MEDICATION PROVIDED PER PATIENT REQUEST FOR C/O ABDOMINAL PAIN.
--- NOTE | 2020-05-30 10:54 | NUR ---
PATIENT'S SON CALLED HERE FOR UPDATES, UPDATES PROVIDED.
--- NOTE | 2020-05-30 11:55 | NUR ---
PATIENT UP TO RECLINER FOR LUNCH. PERICARE PROVIDE FOR SMALL LOOSE BM. NO ACUTE DISTRESS SHOWN.
--- NOTE | 2020-05-30 13:05 | NUR ---
PT ARRIVED TO [facility] ROOM 262 VIA AIR MATRESS BED ACCOMPAINED BY ICU STAFF.INTRODUCED SELF TO PT AND DISCUSSED POC.PT IS A/OX3.RESPIRATIONS ARE EVEN AND UNLABORED ON ROOM AIR. IVF INFUSING WITH EASE, SITE APPEARS HEALTHY AND PATENT.MIDLINE DRESSING CDI. REGINALDO DRAIN X2 WITH BULB SUCTIONS, MINIMAL OUTPUT AT THIS TIME. PT COMPLAINS OF 8/10PAIN IN ABD, DILAUDID ADMINISTERED.TELE MONITORING IN PLACE ST PER ER MONITORING. PT DENIES OF ANY ADDITIONAL NEEDS AT THIS TIME. ALL SAFETY PRECAUTIONSA RE IN PLACE WITH CALL LIGHT IN REACH.WILL CONTINUE TO MONITOR.
--- NOTE | 2020-05-30 13:19 | NUR ---
PHILLIP FROM [facility] CALLED HERE TO GIVE BED NUMBER FOR PATIENT GOING OVER TO [facility], NURSE WILL CALL ME BACK FOR REPORT.
--- NOTE | 2020-05-30 13:45 | NUR ---
PATIENT TRANSFERRED BACK TO BED. PERICARE PROVIDED. AIR MATRESS INTACT, SCD'S PLACED BACK ON. CALL LIGHT WITHIN REACH.
--- NOTE | 2020-05-30 14:20 | NUR ---
PAIN MEDICATION PROVIDED PER PATIENT REQUEST.
--- NOTE | 2020-05-30 14:55 | NUR ---
REPORT CALLED TO KARELY AT [facility].
--- NOTE | 2020-05-30 15:03 | NUR ---
PT ARRIVED TO [facility] ROOM 262 VIA AIR MATRESS BED ACCOMPAINED BY ICU STAFF.INTRODUCED SELF TO PT AND DISCUSSED POC.PT IS A/OX3.RESPIRATIONS ARE EVEN AND UNLABORED ON ROOM AIR. IVF INFUSING WITH EASE, SITE APPEARS HEALTHY AND PATENT.MIDLINE DRESSING CDI. REGINALDO DRAIN X2 WITH BULB SUCTIONS, MINIMAL OUTPUT AT THIS TIME. PT COMPLAINS OF 8/10PAIN IN ABD, DILAUDID ADMINISTERED.TELE MONITORING IN PLACE ST PER ER MONITORING. PT DENIES OF ANY ADDITIONAL NEEDS AT THIS TIME. ALL SAFETY PRECAUTIONSA RE IN PLACE WITH CALL LIGHT IN REACH.WILL CONTINUE TO MONITOR.
--- NOTE | 2020-05-30 15:15 | NUR ---
PATIENT SAFELY TRANSFERRED TO MED SURG BED 262 ON HER AIR MATRESS BED. NO ACUTE DISTRESS SHOWN. ALL PATIENT BELONGINGS TAKEN WITH PATIENT.
--- NOTE | 2020-05-30 15:48 | NUR ---
CALLED PATIENT'S SONBG TO UPDATE ON TRANSFER TO MED SURG AND ROOM NUMBER.
--- NOTE | 2020-05-30 18:57 | NUR ---
PT PULLED OUT #22G IN RW WITH CATHATER STILL INTACT. NEW #22G STARTED IN LFA, SITE APPEARS HEALTHY AND PATENT. IVF RECONNECTED. WILL CONTINUE TO MONITOR
--- NOTE | 2020-05-30 20:11 | NUR ---
PT RESTING IN BED, NO SIGNS OF DISTRESS NOTED, RESP EVEN AND UNLABORED. PT ALERT TO SELF AND PLACE, DISCUSSED POC, PT ANSWERS QUESTIONS CORRECTLY. NOTED IV DISLODGED PT UNSURE HOW. PT C/O PAIN 12/11, NEW IV SITE OBTAINED TO RFA PT TOLERATED WELL. MEDICATED PER JUL, DRESSING TO ABD CDI, REGINALDO X1 WITH MINIMAL DRAINAGE. NICHOLS DRAINING TO GRAVTIY, PT ON AN AIRMATTRESS, SCD'S IN PLACE. ASSESSMENT COMPLETED, BED ALARM FOR SAFETY, CONTINUE TO MONITOR.
--- NOTE | 2020-05-30 22:03 | NUR ---
CALL MADE TO , INFORMED OF PT REMOVING 2 KAMERON FROM MIDLINE INCISION. 20 KAMERON INTACT, NO ACTIVE BLEEDING. DRESSING CLEANSED WITH NS AND NEW DRESSING APPLIED. BED ALARM INTACT. CALL LIGHT IN REACH,CONTINUE TO MONITOR.
--- NOTE | 2020-05-30 22:20 | NUR ---
NEW IV SITE OBTAINED X1 ATTEMPT #22 RFA PT TOLERATED WELL. PT TO BE MEDICATED WITH ATIVAN. CALL LIGHT IN REACH, BED ALARM FOR SAFETY, PT STATES SHE WILL NOT TOUCH DRESSING. CONTINUE TO MONITOR.
--- NOTE | 2020-05-30 23:52 | NUR ---
PT RESTING IN BED WITH EYES CLOSED, NO SIGNS OF DISTRESS NOTED, RESP EVEN AND UNLABORED. IVF INFUSING ZOSYN HUNG, CALL LIGHT IN REACH,CONTINUE TO MONITOR, BED ALARM FOR SAFETY.
[2020-05-31 01:06] VITALS: BP 161/87
--- NOTE | 2020-05-31 03:51 | NUR ---
RT AT BEDSIDE, FOR EKG TO CONFIRM RYTHM CHANGE PER ED MONITORING. PER ED PT IS AFIB, EKG SHOWS ST WITH PAC'S. PT VOICES NO NEEDS OR COMPLAINTS AT THIS TIME, CALL LIGHT IN REACH,CONTINUE TO MONITOR.
[2020-05-31 04:10] VITALS: BP 162/88
--- NOTE | 2020-05-31 04:22 | NUR ---
BP ELEVATED, PT C/O PAIN, PT MEDICATED PER MAR, REGINALDO X2 EMPTIED, PT HAD A LARGE LIQUID BM, CALL LIGHT IN REACH, BED ALARM X1, CONTINUE TO MONITOR.
[2020-05-31 08:00] VITALS: BP 160/86
--- NOTE | 2020-05-31 08:00 | NUR ---
PATIENT AWAKE AND HAS SOME WHAT OF A FLAT AFFECT. PATIENT ORIENTED TO SELF ONLY. VITALS TAKEN AND RECORDED. SON PHONED VOICING CONCERN THAT HE DOESNT FEEL IT IS SAFE FOR HIS MOTHER TO RETURN TO LIVING ALONE.
[2020-05-31 08:52] LABS: HEMATOCRIT 30.1 % (37.0-47.0); HEMOGLOBIN 9.7 g/dl (12.0-16.0); IMMATURE GRANULOCYTES 0.6 % (0.0-5.0); MEAN CELL VOLUME 88.5 fL CALC (80.0-100.0); MEAN CORPUSCULAR HGB 28.5 pG CALC (26.0-32.0); MEAN CORPUSCULAR HGB CONC 32.2 g/dL CAL (32.0-36.0); NEUT# 5.61 thou/uL (2.00-7.15); RED BLOOD COUNT 3.4 mill/uL (4.20-5.60); RED CELL DISTRI WIDTH 16.8 % (11.5-15.5)
[2020-05-31 09:11] LABS: ALBUMIN 2.6 g/dL (3.2-5.0); ALKALINE PHOSPHATASE 121 u/l (38-126); BILIRUBIN, TOTAL 0.6 mg/dL (0.0-1.4); BUN 3 mg/dL (8-23); BUN/CREATININE RATIO 6 (12-20 (CALC)); CHLORIDE 98 mmol/l (95-108); CREATININE 0.5 mg/dL (0.5-1.0); GFR > 60 ML/MIN (>=60 (CALC)); GFR FOR AFR.AMER. > 60 ML/MIN (>=60 (CALC)); POTASSIUM 2.6 mmol/l (3.5-5.1); SGOT/AST 30 u/l (9-36); SODIUM 133 mmol/l (137-146); TOTAL PROTEIN 5.2 g/dL (6.3-8.2)
[2020-05-31 09:12] LABS: ANION GAP 7 (6-22 (CALC)); CARBON DIOXIDE 31 mmol/l (22-30)
[2020-05-31 11:00] VITALS: BP 142/93
--- NOTE | 2020-05-31 12:00 | NUR ---
PATIENT'S REGINALDO DRAINS REMOVED PER DR JUSTIN ORDERS. SON CALLED TO [facility]
[2020-05-31 16:00] VITALS: BP 129/74
--- NOTE | 2020-05-31 16:00 | NUR ---
PATIENT AWAKE AND ALERT TO SELF. NO CONCERNS OR COMPLAINTS. K SUPPLEMENTED 3X AND MAG SULLEMENTED 1X THROUGHOUT SHIFT
[2020-05-31 19:00] VITALS: BP 151/68
--- NOTE | 2020-05-31 19:02 | NUR ---
REPORT FROM ALESSANDRA DOUGLAS. ASSUMED PT CARE.
--- NOTE | 2020-05-31 20:42 | NUR ---
PT NOTED RESTING IN BED. NO APPARENT DISTRESS NOTED. PT ALERT AND ORIENTED X2. PT C/O ABD PAIN 12/11. DRESSING IN PLACE TO MIDLINE INCISION, CDI. MEDICATED AT THIS TIME. REPOSITIONED FOR COMFORT. AIR MATTRESS IN PLACE. NICHOSL PATENT DRAINING TO GRAVITY. CALL LIGHT WITHIN REACH. WILL CONTINUE TO MONITOR
--- NOTE | 2020-06-01 01:38 | NUR ---
PT INCONTINENT OF STOOL. PERICARE AND LINEN CHANGE PROVIDED. PT WAS ABLE TO ASSIST WITH TURNING IN BED. REPOSITIONED IN AIR MATTRESS. NICHOLS CARE PROVIDED WELL. NICHOLS REMAINS PATENT DRAINING TO GRAVITY. PT TOLERATED WELL SHOWING NO S/S OF PAIN OR DISCOMFORT. CALL LIGHT WITHIN REACH. WILL CONTINUE TO MONITOR.
--- NOTE | 2020-06-01 03:58 | NUR ---
PT RESTING IN BED WITH EYES CLOSED. NO APPARENT DISTRESS NOTED. RESPIRATIONS EVEN AND UNLABORED. CALL LIGHT WITHIN REACH. WILL CONTINUE TO MONITOR.
[2020-06-01 04:00] VITALS: BP 149/77
[2020-06-01 05:28] LABS: HEMATOCRIT 27.6 % (37.0-47.0); HEMOGLOBIN 8.8 g/dl (12.0-16.0); MEAN CELL VOLUME 88.5 fL CALC (80.0-100.0); MEAN CORPUSCULAR HGB 28.2 pG CALC (26.0-32.0); MEAN CORPUSCULAR HGB CONC 31.9 g/dL CAL (32.0-36.0); RED BLOOD COUNT 3.12 mill/uL (4.20-5.60); RED CELL DISTRI WIDTH 16.3 % (11.5-15.5)
[2020-06-01 05:47] LABS: ANION GAP 4 (6-22 (CALC)); BUN 3 mg/dL (8-23); BUN/CREATININE RATIO 7 (12-20 (CALC)); CARBON DIOXIDE 34 mmol/l (22-30); CHLORIDE 96 mmol/l (95-108); CREATININE 0.4 mg/dL (0.5-1.0); GFR > 60 ML/MIN (>=60 (CALC)); GFR FOR AFR.AMER. > 60 ML/MIN (>=60 (CALC)); MAGNESIUM 1.7 mg/dL (1.6-2.3); SODIUM 131 mmol/l (137-146)
[2020-06-01 09:22] VITALS: BP 129/73
--- NOTE | 2020-06-01 10:00 | NUR ---
PT IN SUPINE POSITION; A/O X3, FORGETFUL AT TIMES; PT C/O ABD PAIN 8/10, MEDICATED ORDERED; MIDLINE ABD INCISION KAMERON WELL APPROXIMATED NO REDNESS OR EDEMA NOTED; SCD IN PLACE; PT ON AIR MATTRESS; NICHOLS DRAINING CLEAR YELLOW URINE TO BEDSIDE DRAIN; HOUSE PRINCIPAL COUGH NOTED; CALL CALDWELL WITHIN REACH; WILL CONTINUE TO MONITOR.
[2020-06-01 10:53] VITALS: BP 138/73
--- NOTE | 2020-06-01 14:30 | NUR ---
PT MEDICATED FOR C/O ABD PAIN 01/11; CALL CALDWELL WITHIN REACH; WILL CONTINUE TO MONITOR.
[2020-06-01 15:30] VITALS: BP 137/73
--- NOTE | 2020-06-01 16:44 | NUR ---
PT RESTING IN SUPINE POSITION; NO COMPLAINTS OR CONCERNS VOICED; CALL CALDWELL WITHIN REACH; WILL CONTINUE TO MONITOR.
[2020-06-01 19:40] VITALS: BP 153/80
--- NOTE | 2020-06-01 20:00 | NUR ---
PT ASSESSMENT COMPLETED AT THIS TIME. PT LOC X3, BED ALARM ON FOR FORGETFULNESS, NO S/O DISTRESS NOTED AT THIS TIME. INCISION APPEARS CD AT THIS TIME. THERE A NUMBER OF KAMERON THAT APPEAR TO BE MISSING AT THIS TIME, APPEARS TO HAVE 4 KAMERON MISSING, TWO IN LOWER PART OF INCISION APPEARS TO BE PARITALLY OPENED WITH BRIGHT RED TISSUE SHOWING. UPPER AREAS WITH 1 STAPLE MISSING IN EACH AREA ARE CLOSED IN APPEARANCE. APPEAR C/D AT THIS TIME W/OUT OOZING OR DISCHARGE NOTED.
--- NOTE | 2020-06-01 21:34 | NUR ---
PT MEDICATED WITH PM MEDICATION AND FOR PAIN REPORTEDLY 8/10 AND FOR ANXIOUSNESS. PT ASKED IF WE WERE DONE WITH HER FOR THE NIGHT PRIOR TO MY LEAVING THE ROOM. BED ADJUSTED FOR COMFORT AND CONFIRMED CALL LIGHT AT SIDE AND PT REMINDED OF ITS LOCATION AND USE. SHE STATED WANTING TO GO TO SLEEP.
--- NOTE | 2020-06-01 22:40 | NUR ---
PT SLEEPING AT THIS TIME. NO S/O DISTRESS NOTED. CALL LIGHT AT SIDE.
[2020-06-01 23:50] VITALS: BP 163/78
--- NOTE | 2020-06-02 | NUR ---
SPORTS CLERK IS IN WITH PT TO OBTAIN V/S. PT DENIES ANY NEEDS AT THIS TIME.
[2020-06-02 03:50] VITALS: BP 163/80
--- NOTE | 2020-06-02 04:10 | NUR ---
IVF REPLENISHED AT THIS TIME. NO S/O DISTRESS NOTED. V/S HAVE BEEN ASSESSED AT THIS TIME. CALL LIGHT AT SIDE.
[2020-06-02 04:56] LABS: HEMATOCRIT 30.4 % (37.0-47.0); HEMOGLOBIN 9.6 g/dl (12.0-16.0); MEAN CELL VOLUME 90.2 fL CALC (80.0-100.0); MEAN CORPUSCULAR HGB 28.5 pG CALC (26.0-32.0); MEAN CORPUSCULAR HGB CONC 31.6 g/dL CAL (32.0-36.0); RED BLOOD COUNT 3.37 mill/uL (4.20-5.60); RED CELL DISTRI WIDTH 16.2 % (11.5-15.5)
[2020-06-02 05:19] LABS: ANION GAP 9 (6-22 (CALC)); BUN 4 mg/dL (8-23); BUN/CREATININE RATIO 11 (12-20 (CALC)); CARBON DIOXIDE 32 mmol/l (22-30); CHLORIDE 97 mmol/l (95-108); CREATININE 0.4 mg/dL (0.5-1.0); GFR > 60 ML/MIN (>=60 (CALC)); GFR FOR AFR.AMER. > 60 ML/MIN (>=60 (CALC)); MAGNESIUM 1.6 mg/dL (1.6-2.3); POTASSIUM 3.5 mmol/l (3.5-5.1); SODIUM 135 mmol/l (137-146)
--- NOTE | 2020-06-02 06:46 | NUR ---
PT C/O CHEST PAIN 10/10 ON PAIN SCALE. V/S ASSESSED AT THIS TIME. HR ELEVATED TO 117. EKG ORDERED STAT/ADMINISTERED AND PT MEDICATED FOR PAIN.
[2020-06-02 08:02] VITALS: BP 169/74
--- NOTE | 2020-06-02 08:55 | NUR ---
SHIFT CHANGE REPORT, PT AWAKE BUT LETHARGIC, C/O STOMACH PAIN @ TOP OF INCISION @ 8/10, INCISION TO ABDOMEN WITH KAMERON INTACT BUT BASE OF INCISION OPEN WITH LIGHT RED DRAINAGE, ABD PAD APPLIED AND SECURED WITH PAPER TAPE, REFUSED MEAL AT THIS TIME, WILL CONTINUE TO MONITOR AND ADDRESS NEEDS, CALL CALDWELL IN REACH.
--- NOTE | 2020-06-02 11:55 | NUR ---
CONTINUES TO C/O PAIN TO SUPERIOR AREA OF INCICION, MEDICAL TEAM ROUNDED AND DISCUSSED PLAN OF CARE, PT STATES SHE WANST TO STAY HERE LONGER SHE DOESNT FEEL IF SHE IS READY TO GO HOME. SON BG CALLED TO RECEIVE UPDATE, HE STATED PT LIVES ALONE AND THINKS SHE NEEDS REHAB AT THIS TIME. CONCERNS WILL BE RELAYED TO MEDICAL TEAM.
--- NOTE | 2020-06-02 12:15 | NUR ---
DR JUSTIN ROUNDED, EVALUATED PT, SAID SON HAD CONTACTED HIM REGARDING PLACEMENT FOR PT SHE LIVES ALONE, CM AWARE AND WILL FOLLOW UP.
--- NOTE | 2020-06-02 14:56 | NUR ---
ASSISTED TO BSC WITH 1 PERSON ASSIST, URINATED, THEN ASSISTED TO RECLINER, CALL PAULETTE PLADED WITHIN RECH.
[2020-06-02 15:00] VITALS: BP 101/65
[2020-06-02 18:34] VITALS: BP 109/62
--- NOTE | 2020-06-02 18:37 | NUR ---
APPETITE POOR, REFUSED MEALS BUT REQUESTED OJ. ASSISTED FROM RECLINER TO BED AT THIS TIME AFTER ASSISTING ON BSC, BED ALARM ACTIVATED, CALL CALDWELL IN REACH.
--- NOTE | 2020-06-02 19:40 | NUR ---
pt sleeping, did not awake to my entering room. no s/o distress noted.
--- NOTE | 2020-06-02 23:30 | NUR ---
PT SLEEPING, NO S/O DISTRESS NOTED AT THIS TIME.
--- NOTE | 2020-06-03 02:00 | NUR ---
PT SLEEPING, NO S/O DISTRESS NOTED. PT DID NOT AWAKE TO MY ENTERING ROOM CALL LIGHT IS AT SIDE AND BED ALARM IS ON.
--- NOTE | 2020-06-03 04:30 | NUR ---
PT CLEANED OF VERY SMALL AMOUNT OF URINE. PT BLADDER SCANNED DUE TO MINIMAL OUTPUT OVERNIGHT ON THIS SHIFT. BLADDER SCAN SHOWS 100CC OF URINE RETAINED IN THE BLADDER.
[2020-06-03 04:33] VITALS: BP 114/58
[2020-06-03 05:33] LABS: HEMATOCRIT 28.8 % (37.0-47.0); IMMATURE GRANULOCYTES 0.9 % (0.0-5.0); MEAN CELL VOLUME 89.2 fL CALC (80.0-100.0); MEAN CORPUSCULAR HGB 27.9 pG CALC (26.0-32.0); MEAN CORPUSCULAR HGB CONC 31.3 g/dL CAL (32.0-36.0); NEUT# 22.3 thou/uL (2.00-7.15); RED BLOOD COUNT 3.23 mill/uL (4.20-5.60); RED CELL DISTRI WIDTH 16.2 % (11.5-15.5)
[2020-06-03 05:58] LABS: ALBUMIN 2.6 g/dL (3.2-5.0); ALKALINE PHOSPHATASE 107 u/l (38-126); ANION GAP 9 (6-22 (CALC)); BILIRUBIN, TOTAL 0.7 mg/dL (0.0-1.4); BUN 15 mg/dL (8-23); BUN/CREATININE RATIO 17 (12-20 (CALC)); CARBON DIOXIDE 30 mmol/l (22-30); CHLORIDE 93 mmol/l (95-108); CREATININE 0.9 mg/dL (0.5-1.0); GFR 60 ML/MIN (>=60 (CALC)); GFR FOR AFR.AMER. > 60 ML/MIN (>=60 (CALC)); MAGNESIUM 1.4 mg/dL (1.6-2.3); POTASSIUM 4.2 mmol/l (3.5-5.1); SGOT/AST 23 u/l (9-36); SODIUM 129 mmol/l (137-146); TOTAL PROTEIN 5.2 g/dL (6.3-8.2)
--- NOTE | 2020-06-03 06:09 | NUR ---
PT BLADDER SCANNED FOR MINIMAL URINE OUTPUT THIS SHIFT, 112CC OF URINE RETAINED PER BLADDER SCAN AT THIS TIME. WILL NOTIFY DAYSHIFT OF MINIMAL OUTPUT. PT IS SL AND HAS POOR PO INTAKE AT THIS TIME.
[2020-06-03 07:00] VITALS: BP 118/72
--- NOTE | 2020-06-03 07:00 | NUR ---
SHIFT CHANGE REPORT, PT SLEEPING BUT AROUSES TO VERBAL STIMULI, ALERT ORIENTED PERSON AND PLACE, NO C/O AT THIS TIME OF PAIN, SET UP FOR MEAL, CALL CALDWELL IN REACH.
--- NOTE | 2020-06-03 11:15 | NUR ---
ASSISTED OOB TO BSC THEN TO RECLINER WITH MODERATE ASSISTANCE, CALL CALDWELL PLACED WITHIN REACH AND CHAIR LOCKED.
[2020-06-03 11:58] LABS: HEMATOCRIT 27.7 % (37.0-47.0); HEMOGLOBIN 8.9 g/dl (12.0-16.0); IMMATURE GRANULOCYTES 0.7 % (0.0-5.0); MEAN CELL VOLUME 88.8 fL CALC (80.0-100.0); MEAN CORPUSCULAR HGB 28.5 pG CALC (26.0-32.0); MEAN CORPUSCULAR HGB CONC 32.1 g/dL CAL (32.0-36.0); NEUT# 20.59 thou/uL (2.00-7.15); RED BLOOD COUNT 3.12 mill/uL (4.20-5.60); RED CELL DISTRI WIDTH 16.1 % (11.5-15.5)
[2020-06-03 12:46] LABS: C. DIFFICILE TOXIN A&B NEGATIVE (NEGATIVE)
[2020-06-03 13:09] VITALS: BP 124/68
--- NOTE | 2020-06-03 13:19 | NUR ---
PT FOUND ON FLOOR BY COIN MACHINE COLLECTOR SUPERVISOR, ASSESSMENT PERFORMED, ROM NORMAL AT THIS TIME, NO VISIBLE CUTS OR BRUISES OBSERVED, ASSISTED TO BED, VITAL SIGNS MEASURED AND RECORDED, BED ALARM ACTIVATED, MEDICAL TEAM AND SUBSTATION DESIGNER NOTIFIED, WILL CONTINUE TO MONITOR.-
--- NOTE | 2020-06-03 16:00 | NUR ---
SLEEPING, NO SIGN DISTRESS, BED ALARM ON.
[2020-06-03 19:05] VITALS: BP 123/58
--- NOTE | 2020-06-03 20:00 | NUR ---
PATIENT RESTING IN BED AT THIS TIME-AWAKE ALERT AND ORIENTEDX3. PATIENT WITH IVF PATENT AND INFUSING VIA RIGHT FOREARM AT 80CC/HR. SITE IS HEALTHY AT THIS TIME. ACCU-CHECK WNL. NO COVERAGE NEEDED, SAFETY PRECAUTIONS REINFORCED. BED ALARM IN PLACE FOR PATIENT SAFETY. CALL LIGHT IN REACH. WILL CONT TO MONITOR.
--- NOTE | 2020-06-03 22:13 | NUR ---
PATIENT RESTING IN BED-AWAKE AND ALERT. ABD PLACED OVER ABD INCISION LINE-KAMERON INTACT WITH ONLY SCANT DRAINAGE NOTED ON OLD DRESSING. ABD BINDER PLACED. PATIENT C/O ABD PAIN-8/10 ON PAIN SCALE. MEDICATED WITH DILAUDID 1MG IVP ORDERED FOR PAIN. IVF NS PATENT AND IONFUSING VIA RIGHT FOREARM SITE. SITE APPEARS HEALTHY AT THIS TIME. PATIENT PROVIDED WITHOJ PER PATIENT REQUEST. SAFETY PRECAUTIONS REINFORCED. BED ALARM IN PLACE FOR PATIENT SAFETY. CALL LIGHT IN REACH. WILL CONT TO MONITOR.
[2020-06-04 04:00] VITALS: BP 128/63
--- NOTE | 2020-06-04 04:22 | NUR ---
NEW IV SITE STARTED TO LEFT HAND-#22 WITH GOOD BLOOD RETURN. IVF NS PATENT AND INFUSING AT 80CC/HR. PATIENT WITH C/O ABD PAIN 8/10 ON PAIN SCALE. MEDICATED WITH DILAUDID 1MG IVP ORDERED FOR PAIN. ABD BINDER REMAINS IN PLACE. PUREWICK IN PLACE DRAINING YELLOW URINE. CALL LIGHT IN REACH. WILL CONT TO MONITOR.
[2020-06-04 05:15] LABS: URINE BILIRUBIN - DIPSTICK NEGATIVE (NEGATIVE); URINE BLOOD DIPSTICK TRACE-LYSED (NEGATIVE); URINE CLARITY SL CLOUDY; URINE COLOR YELLOW; URINE GLUCOSE - DIPSTICK NEGATIVE (NEGATIVE); URINE KETONE NEGATIVE (NEGATIVE); URINE LEUK ESTERASE NEGATIVE (Negative); URINE NITRITE - DIPSTICK NEGATIVE (Negative); URINE PH 8.5 (4.5-8.0); URINE PROTEIN - DIPSTICK TRACE mg/dL (NEG-TRACE); URINE SPECIFIC GRAVITY 1.015
[2020-06-04 06:08] LABS: HEMATOCRIT 25.9 % (37.0-47.0); HEMOGLOBIN 8.2 g/dl (12.0-16.0); IMMATURE GRANULOCYTES 0.5 % (0.0-5.0); MEAN CELL VOLUME 88.7 fL CALC (80.0-100.0); MEAN CORPUSCULAR HGB 28.1 pG CALC (26.0-32.0); MEAN CORPUSCULAR HGB CONC 31.7 g/dL CAL (32.0-36.0); NEUT# 13.36 thou/uL (2.00-7.15); RED BLOOD COUNT 2.92 mill/uL (4.20-5.60); RED CELL DISTRI WIDTH 15.8 % (11.5-15.5)
--- NOTE | 2020-06-04 06:27 | NUR ---
IV TO LEFT HAND FOUND DISLODGED AGAIN. PATIENT STATES THAT SHE DOESN'T KNOW HOW THIS WAS DISLODGED AGAIN. WAS JUST RESTARTED APPROX 3 HOURS AGO. WILL CONT TO MONITOR.
[2020-06-04 06:28] LABS: ALBUMIN 2.5 g/dL (3.2-5.0); ALKALINE PHOSPHATASE 110 u/l (38-126); ANION GAP 8 (6-22 (CALC)); BILIRUBIN, TOTAL 0.6 mg/dL (0.0-1.4); BUN 13 mg/dL (8-23); BUN/CREATININE RATIO 22 (12-20 (CALC)); CARBON DIOXIDE 29 mmol/l (22-30); CHLORIDE 96 mmol/l (95-108); CREATININE 0.6 mg/dL (0.5-1.0); GFR > 60 ML/MIN (>=60 (CALC)); GFR FOR AFR.AMER. > 60 ML/MIN (>=60 (CALC)); POTASSIUM 3.8 mmol/l (3.5-5.1); SGOT/AST 17 u/l (9-36); SODIUM 129 mmol/l (137-146); TOTAL PROTEIN 5.1 g/dL (6.3-8.2)
--- NOTE | 2020-06-04 07:10 | NUR ---
REPORT RECEIVED FROM STELLA DIETZ
--- NOTE | 2020-06-04 08:50 | NUR ---
PT RESTING IN SEMI FOWLERS POSITION,A&O X3;VS OBTAINED AND ASSESSMENT COMPLETED;PT REPORTS ABDOMINAL PAIN AND REQUESTS PAIN MEDICATION, PT PULLED OUT MULTIPLE IV SITES LAST NIGHT. NO IV SITE CURRENTLY IN PLACE;NEW ORDERS RECEIVED FROM ORAL PAIN MEDICATION;RESPIRATIONS EVEN AND UNLABORED ON RA,DIMINISHED LUNG SOUNDS;ABDOMEN SOFT ON PALPATION AND ACTIVE IN ALL 4 QUADRANTS;ABDOMINAL DRESSING CDI;PUREWICK CATHETER DRAINING CLEAR/YELLOW URINE;WEAK PEDAL PULSES;PT REMAINS ON AIR MATTRESS AT THIS TIME;PT DENIES ANY ADDITIONAL NEEDS;ENCOURAGED TO CALL FOR ASSISTANCE IF NEEDED;FALL PRECAUTIONS IN PLACE WITH BED IN THE LOWEST POSITION AND CALL LIGHT IN REACH;WILL CONTINUE TO MONITOR
[2020-06-04 08:52] VITALS: BP 127/65
[2020-06-04] MEDS ORDERED: PANTOPRAZOLE SO40 M1 PO (09:51)
[2020-06-04] MEDS ORDERED: LORTAB 1010 MG PO (09:51)
--- NOTE | 2020-06-04 09:52 | NUR ---
AT BEDSIDE DISCUSSING POC.
--- NOTE | 2020-06-04 11:00 | NUR ---
PT RESTING IN SEMI FOWLERS POSITION;RESPIRATIONS EVEN AND UNLABORED ON RA;PT REPORTS ABDOMINAL PAIN RATING 8/10 ON THE PAIN SCALE AND REQUESTS PAIN MEDICATION, PT MEDICATED WIRH PRN LORTAB 7.5MG;PT REPORTS CODEINE ALLERGY BUT DOES REPORT THAT SHE HAS TAKEN LORTAB BEFORE WITH NO SIDE EFFECTS;PURWICK CATHETER REMAINS IN PLACE;ABDOMINAL DRESSING CDI;PT DENIES ANY ADDITIONAL NEEDS;ENCOURAGED TO CALL FOR ASSISTANCE IF NEEDED;FALL PRECAUTIONS IN PLACE WITH BED ALARM ON FOR SAFETY;CALL LIGHT IN REACH;WILL CONTINUE TO MONITOR
--- NOTE | 2020-06-04 14:05 | NUR ---
ALL DISCHARGE INSTRUCTIONS PROVIDED AT THIS TIME RX FOR PROTONIX AND LORTAB TO BE SENT WITH PT TO [facility];PT DENIES ANY QUESTIONS OR NEEDS;AWAITING TRANSPORT FOR D/C TO REHAB;PT ENCOURAGED TO CALL FOR ASSISTANCE IF NEEDED;CALL LIGHT IN REACH;WILL CONTINUE TO MONITOR
[2020-06-04] MEDS ORDERED: HYDROCODONE/ACE1 TAB PO (14:24)
--- NOTE | 2020-06-04 14:29 | NUR ---
Discharge instructions given. Patient verbalizes understanding of same. Discharged in stable condition via Wheel[facility] to [facility] with *Other. All belongings sent with pt. PT TRANSPORTED TO [facility] VIA WHEELCHAIR IN STABLE CONDITION ACCOMPANIED BY REHAB STAFF. ALL BELONGINGS LEFT WITH PT INCLUDING RX FOR LORTAB AND PROTONIX.
--- NOTE | 2020-06-04 14:35 | NUR ---
REPORT CALLED TO STELLA TREVIZO AT [facility].
== END 2020-06-04 14:29 | DRG 853 ==
LOC: ED 10:16 → ED-I 10:32 → ED 10:32 → ED-I 12:56 → ED 13:20 → ICU 13:21 → MS2 13:21 → ICU 05-26 19:04 → MS2 05-30 15:20
PROVIDERS: Family Medicine; Internal Medicine; Nurse Practitioner; Nurse Practitioner Family; Physician Assistant; Surgery; ADMIT Internal Medicine; ATTEND Internal Medicine
PROC: 0D160ZA Bypass Stomach to Jejunum, Open Approach (ICD-10-PCS; principal; 2020-05-26)
PROC: 0DB90ZZ Excision of Duodenum, Open Approach (ICD-10-PCS; 2020-05-26)
PROC: 0DB70ZZ Excision of Stomach, Pylorus, Open Approach (ICD-10-PCS; 2020-05-26)
PROC: 0DJ08ZZ Inspection of Upper Intestinal Tract, Via Natural or Artificial Opening Endoscopic (ICD-10-PCS; 2020-05-26)
PROC: 30233N1 Transfusion of Nonautologous Red Blood Cells into Peripheral Vein, Percutaneous Approach (ICD-10-PCS; 2020-05-26)
PROC: 30233N1 Transfusion of Nonautologous Red Blood Cells into Peripheral Vein, Percutaneous Approach (ICD-10-PCS; 2020-05-26)
PROC: 30233K1 Transfusion of Nonautologous Frozen Plasma into Peripheral Vein, Percutaneous Approach (ICD-10-PCS; 2020-05-26)
PROC: 30233K1 Transfusion of Nonautologous Frozen Plasma into Peripheral Vein, Percutaneous Approach (ICD-10-PCS; 2020-05-26)
PROC: 30233K1 Transfusion of Nonautologous Frozen Plasma into Peripheral Vein, Percutaneous Approach (ICD-10-PCS; 2020-05-26)
PROC: 30233K1 Transfusion of Nonautologous Frozen Plasma into Peripheral Vein, Percutaneous Approach (ICD-10-PCS; 2020-05-26)
PROC: 30233N1 Transfusion of Nonautologous Red Blood Cells into Peripheral Vein, Percutaneous Approach (ICD-10-PCS; 2020-05-27)
DX: A41.9 Sepsis, unspecified organism (principal); K26.6 Chronic or unspecified duodenal ulcer with both hemorrhage and perforation; D62 Acute posthemorrhagic anemia; E87.2 Acidosis; N17.9 Acute kidney failure, unspecified; E87.1 Hypo-osmolality and hyponatremia; E87.6 Hypokalemia; I10 Essential (primary) hypertension; E11.9 Type 2 diabetes mellitus without complications; I25.10 Atherosclerotic heart disease of native coronary artery without angina pectoris; E86.0 Dehydration; D72.829 Elevated white blood cell count, unspecified; E83.42 Hypomagnesemia; K21.9 Gastro-esophageal reflux disease without esophagitis; T39.395A Adverse effect of other nonsteroidal anti-inflammatory drugs [NSAID], initial encounter; F03.90 Unspecified dementia, unspecified severity, without behavioral disturbance, psychotic disturbance, mood disturbance, and anxiety; Z60.2 Problems related to living alone; Z20.822 Contact with and (suspected) exposure to COVID-19
CPT/HCPCS: J0131; J2060; J3475; P9016; Q9967; S0164

== ENCOUNTER 2021-09-27 14:55 | Emergency (ER) | payer MEDICARE, OTHER ==
[~2021-09-27] VITALS: Ht 160 cm; Wt 59.0 kg
[~2021-09-27 14:55] MED LIST changes: +HYDROCODONE/ACE1 TAB PO; +LORTAB 1010 MG PO; +PANTOPRAZOLE SO40 M1 PO
[2021-09-27 15:22] VITALS: BP 113/56
[2021-09-27 15:31] VITALS: BP 118/54
[2021-09-27 16:02] LABS: HEMATOCRIT 39.5 % (37.0-47.0); IMMATURE GRANULOCYTES 0.2 % (0.0-5.0); MEAN CELL VOLUME 93.2 fL CALC (80.0-100.0); MEAN CORPUSCULAR HGB 30.7 pG CALC (26.0-32.0); MEAN CORPUSCULAR HGB CONC 32.9 g/dL CAL (32.0-36.0); NEUT# 4.53 thou/uL (2.00-7.15); RED BLOOD COUNT 4.24 mill/uL (4.20-5.60); RED CELL DISTRI WIDTH 12.4 % (11.5-15.5)
[2021-09-27 16:16] LABS: ALKALINE PHOSPHATASE 99 u/l (38-126); BUN 11 mg/dL (8-23); BUN/CREATININE RATIO 18 (12-20 (CALC)); CARBON DIOXIDE 24 mmol/l (22-30); CHLORIDE 103 mmol/l (95-108); CREATININE 0.6 mg/dL (0.5-1.0); GFR > 60 ML/MIN (>=60 (CALC)); GFR FOR AFR.AMER. > 60 ML/MIN (>=60 (CALC)); SGOT/AST 19 u/l (9-36)
[2021-09-27 16:17] LABS: ALBUMIN 3.9 g/dL (3.2-5.0); ANION GAP 14 (6-22 (CALC)); BILIRUBIN, TOTAL 0.1 mg/dL (0.0-1.4); SODIUM 137 mmol/l (137-146); TOTAL PROTEIN 7.2 g/dL (6.3-8.2)
[2021-09-27 16:21] LABS: URINE BILIRUBIN - DIPSTICK NEGATIVE (NEGATIVE); URINE BLOOD DIPSTICK NEGATIVE (NEGATIVE); URINE COLOR YELLOW; URINE GLUCOSE - DIPSTICK NEGATIVE (NEGATIVE); URINE KETONE NEGATIVE (NEGATIVE); URINE PROTEIN - DIPSTICK NEGATIVE (NEG-TRACE); URINE UROBILINOGEN - DIPSTICK 0.2 E.U./dL (0.2)
[2021-09-27 16:22] LABS: URINE LEUK ESTERASE SMALL (NEGATIVE); URINE NITRITE - DIPSTICK NEGATIVE (Negative)
[2021-09-27 16:32] LABS: URINE RBC 0-2 RBC/hpf (0-5); URINE TRANSITIONAL EPI. CELLS FEW hpf
[2021-09-27] MEDS ORDERED: DOXYCYCLINE100 MG PO (16:43)
[2021-09-27 17:03] VITALS: BP 118/54
== END 2021-09-27 17:10 | disposition home or self-care (01) ==
LOC: ED 14:55
PROVIDERS: Nurse Practitioner
DX: J69.0 Pneumonitis due to inhalation of food and vomit (principal); I10 Essential (primary) hypertension; F03.90 Unspecified dementia, unspecified severity, without behavioral disturbance, psychotic disturbance, mood disturbance, and anxiety; E11.9 Type 2 diabetes mellitus without complications; I25.10 Atherosclerotic heart disease of native coronary artery without angina pectoris